=== PATIENT | female | born 1965 ===

== ENCOUNTER 2016-03-23 17:50 | Emergency (ER) | payer OTHER ==
[~2016-03-23] VITALS: Ht 154.9 cm; Wt 97.1 kg
[~2016-03-23 17:50] MED LIST: ALPRAZOLAM0.25 M1 PO; CITALOPRAM HYDR40 MG PO; HYDRODIURIL 112.5 M1 PO; LEVOTHYROXIN0.088 MG PO; LISINOPRIL5 M1 PO; NASONEX0.05 MG/Ac NASB; NICOTINE PATCH1 EAC3 TOP; PERCOCET 325 MG1 TA2 PO; PLAQUENIL200 M1 PO; PRINIVIL 5MG5 MG PO; SIMV10 PO; SIMVASTATIN20 M2 PO; SIMVASTATIN40 M1 PO; XANAX0.5 MG PO; ZYRTEC10 MG PO
--- NOTE | 2016-03-23 18:40 | ED GI/GU/ABDOMINAL COMPLAINT ---
See Addendum History of Present Illness General Chief Complaint: General Adult Stated Complaint: SWELLING IN LIMBS AND ABD. ?KIDNEY ISSUES PER PT Source: patient, old records Exam Limitations: no limitations Vital Signs & Intake/Output Vital Signs & Intake/Output Vital Signs Date Time Temp Pulse Resp B/P Pulse O2 O2 Flow FiO2 Ox Delivery Rate 03/23 2048 97.1 84 17 127/70 96 Room Air 03/23 1815 97.7 114 20 133/77 96 Room Air ED Intake and Output 03/24 0000 03/23 1200 Intake Total 120 Output Total 1 Balance 119 Intake, Oral 120 Output, Urine 1 Patient 214 lb Weight Allergies Coded Allergies: ibuprofen (Severe, HIVES 01/14/16) NSAIDS (Non-Steroidal Anti-Inflamma (HIVES 03/23/16) Reconcile Medications Citalopram Hydrobromide (Citalopram HBr) 40 MG TAB 1 TAB PO DAILY MENTAL HEALTH (Reported) Clonazepam 0.5 MG TABLET 1 TAB PO DAILY PTSD (Reported) Hydrochlorothiazide (Hydrodiuril 12.5 MG Tab) 12.5 MG HTAB 1 CAP PO DAILY BP (Reported) Hydroxychlorquine (Plaquenil) 200 MG TABLET 1 TAB PO D ARTHRITIS (Reported) Levothyroxine Sodium (Levothyroxine) 0.088 MG TAB 0.088 MG PO DAILY AC THYROID (Reported) Lisinopril 5 MG TABLET 1 TAB PO DAILY BP (Reported) Nitrofurantoin Monohyd/M-Cryst (Nitrofurantoin Beauregard-Mcr 100 MG) 100 MG CAPSULE 1 CAP PO BID UTI (Reported) Ondansetron HCl (Zofran) 4 MG TABLET 1 TAB PO Q6-8P PRN nausea Phenazopyridine HCl 100 MG TABLET 1 TAB PO TID UTI (Reported) Simvastatin (Simvastatin*) 20 MG TABLET 1 TAB PO DAILY CHOLESTEROL (Reported) Tylenol With Codeine (Tylenol With Codeine #3 Tablet) 300 MG-30 MG TABLET 1 TAB PO BIDP PRN pain Triage Note: PT TO ED C/O LEFT SIDED ABD X 2 WEEKS. C/O NAUSEA. DENIES V/D. DENIES S/S. STATES WAS CHECKED FOR A UTI, BUT IT WAS NEGATIVE. PT ALSO HAD INTERNAL U/S ON 03/17. PT CONCERNED ABOUT SWELLING ALL OVER WELL. PT STATES SHE HAD A FEVER AT HOME ON MONDAY, AFEBRILE NOW. Triage Nurses Notes Reviewed? yes LMP (ages 10-50): hysterectomy ? N Is pt currently ? No Onset: Abrupt Duration: constant, getting worse, waxing and waning, X 2.5 MONTHS Timing: recent history Quality/Severity: aching Severity Numbers: 6 Location: left flank Radiation: LLQ Activities at Onset: none Prior Abdominal Problems: similar symptoms No Modifying Factors: none Associated Symptoms: BURNING WITH URINATION HPI: 50-year-old female with history of autoimmune arthritis fibromyalgia and PTSD status post total hysterectomy 3 months ago presents to emergency room complaining of left flank pain that is radiating to the left lower quadrant for the past 2-1/2 months getting progressively worse described as throbbing and aching. For which she has not sought care or taken any medications for her symptoms. She denies any hematuria however reports of burning with urination. She denies any vomiting or diarrhea however reports intermittent nausea. The patient states she was seen by Dr. Interiano last week that was unremarkable and had a urinalysis which she states showed no signs of infection however was started on penicillin anyway. No sick contacts no vaginal bleeding or discharge. Her abdominal surgeries significant for appendectomy exploratory laparoscopic and hysterectomy. There are no modifying factors nothing makes the pain better or worse and stated it is constantly there. The patient has no history of kidney stones. The patient states that the extremity swelling has been constant and chronic over the past several years. She denies that it being worse than normal no recent immobility or recent travel. patient states she has had similar pain since 2010 worse over the past 2.5 months though (ODILIA DAVILA,BJ) Past History Travel History Traveled to [place] past 21 day No Medical History Any Pertinent Medical History? see below for history Neurological: NONE EENT: hearing loss Cardiovascular: hypertension Respiratory: bronchitis Gastrointestinal: NONE Hepatic: NONE Renal: NONE Musculoskeletal: fibromyalgia, DEGENERATIVE DISK DISEASE Psychiatric: anxiety, depression, PTSD Endocrine: HYPOTHYRODISM Blood Disorders: NONE Cancer(s): NONE PRODUCT ARCHITECT/Reproductive: endometriosis, fibroid History of MRSA: No History of VRE: No History of CDIFF: No Surgical History Surgical History: UTERINE ABLATION Psychosocial History Who do you live with Patient/Self Services at Home None What is your primary language Pashto Tobacco Use: Current Daily Use Daily Tobacco Use Amount/Type: => 5 Cigarettes daily ETOH Use: occasional use Illicit Drug Use: marijuana Family History Hx Contributory? No (BJ THURSTON) Review of Systems Review of Systems Constitutional: Reports: see HPI. All Other Systems: Reviewed and Negative Comments Review of systems: See HPI, All other systems negative. Constitutional, no chills no fever, no malaise HEENT: No visual changes no sore throat no congestion, no ear pain Cardiovascular: No chest pain , no palpitation Skin, no jaundice no rashes, no change in skin Respiratory: No dyspnea no cough no sputum GI: No nausea no vomiting, no diarrhea : No dysuria No hematuria, no frequency Muscle skeletal: No joint pain, no back pain, no neck pain, Neurologic: No numbness no headache Psych: No stress Heme/endocrine: No bruising no bleeding Immunology: No lymphadenopathy (BJ THURSTON) Physical Exam Physical Exam General Appearance: well developed/nourished, no apparent distress, alert Gastrointestinal: normal bowel sounds, soft Comments: Well-developed well-nourished person in no acute distress HEENT: Normal EENT exam; PERRL, EOMI, HEAD is atraumatic. moist mucous membranes. Neck: Supple, no lymphadenopathy, normal range of motion Back: Nontender, no CVA tenderness. Full range of motion Cardiovascular: Regular rate and rhythms no murmurs rubs Respiratory: No respiratory distress. Patient speaking in full complete sentences. Breath sounds clear to auscultation bilaterally: NO W/R/R Abdomen: Soft, mild left upper and left lower quadrant tenderness to palpatioN, surgical incision is well-healed there is no surrounding erythema induration or fluctuance nontender nondistended, no appreciable organomegaly. Normal bowel sounds. No rebound/guarding, No ascites. Extremity: No edema, full range of motion of extremities, normal and equal pulses bilaterally, 5 out of 5 strength noted to bilateral upper and lower extremities Neuro: Alert oriented x3, motor sensory normal, There were no obvious focal neurologic abnormalities. Skin: No appreciable rash on exposed skin, skin is warm and dry. Psych: Mood and affect is normal, memory and judgment is normal. Core Measures ACS in differential dx? No Severe Sepsis Present: No Septic Shock Present: No (BJ THURSTON) Progress Differential Diagnosis: bowel obstruction, colon cancer, hernia, inflamm bowel dis, kidney stone, PUD/GERD, perforated viscous, UTI/pyelo Plan of Care: Orders Procedure Date/time Status TSH REFLEX 03/23 1929 Complete LIPASE 03/23 1901 Complete AMYLASE 03/23 1901 Complete URINALYSIS 03/23 1837 Complete COMPREHENSIVE METABOLIC PANEL 03/23 1837 Complete CBC WITHOUT DIFFERENTIAL 03/23 1837 Complete Laboratory Tests 03/23/161931: Urine Color YEL, Urine Clarity CLEAR, Urine pH 6.0, Ur Specific Mohawk >= 1.030 , Urine Protein NEG, Urine Ketones NEG, Urine Nitrite NEG, Urine Bilirubin NEG, Urine Urobilinogen 0.2, Ur Leukocyte Esterase NEG, Ur Microscopic SEDIMENT EXAMINED, Urine RBC RARE, Urine WBC RARE, Ur Epithelial Cells MOD H, Urine Mucus FEW, Urine Hemoglobin TRACE-INTACT, Urine Glucose NEG 03/23/161929: Amylase < 30 L, Lipase 130 03/23/161929: Anion Gap 15, Estimated GFR > 60, BUN/Creatinine Ratio 20.0, Glucose 87, Calcium 9.6, Total Bilirubin 0.4, AST 23, ALT 37, Alkaline Phosphatase 62, Total Protein 7.8, Albumin 4.6, Globulin 3.2, Albumin/Globulin Ratio 1.4, TSH &T3 &Free T4 Intrp 2.340, CBC w Diff NO MAN DIFF REQ, RBC 4.69, MCV 87.5, MCH 28.7, RDW 14.0, MPV 7.6, Gran % 63.8, Lymphocytes % 25.2, Monocytes % 7.4, Eosinophils % 3.4, Basophils % 0.2, Absolute Granulocytes 6.6 H, Absolute Lymphocytes 2.6, Absolute Monocytes 0.8 H, Absolute Eosinophils 0.4, Absolute Basophils 0, PUBS MCHC 32.8 L 03/23/16 1840: TSH &T3 &Free T4 Intrp Cancelled Labs ordered old records reviewed patient Medicated with Zofran ODT Tylenol with codeine area CAT scan ordered case d/w and signed out to cameron murphy at [address] (ODILIA DAVILA,BJ) Diagnostic Imaging: Viewed by Me: CT Scan. Discussed w/RAD: CT Scan. Radiology Impression: PATIENT: ABDIRASHID GARCIA PRESENT AGE: 50 PATIENT ACCOUNT NO: [id number] : 66 LOCATION: [facility] ORDERING PHYSICIAN: BJ DAVILA SERVICE DATE: 03/23/16 EXAM TYPE: CAT - CT ABD & PELVIS W/O IV CONTRAS EXAMINATION: CT ABDOMEN AND PELVIS WITHOUT CONTRAST CLINICAL INFORMATION: Left flank pain. COMPARISON: None. TECHNIQUE: Multidetector volumetric imaging was performed from the superior aspect of the liver through the pubic symphysis. Sagittal and coronal reformatted images were obtained on the technologist's workstation. DLP: 877.61 mGy-cm. FINDINGS: The lung bases are clear. There are no pleural effusions. The unenhanced liver, gallbladder, spleen, adrenal glands, and pancreas appear normal. There is no hydronephrosis or perinephric stranding bilaterally. A small 6 mm faintly high density focus in the lower pole of the right kidney may be due to a nonobstructing calculus or small proteinaceous cyst, too small to definitively characterize. The abdominal aorta is normal in caliber. No bulky adenopathy is seen. The patient has had a prior hysterectomy. The ovaries are not visible, also potentially have been surgically resected. The bladder is decompressed. No free air or free fluid is seen. There is a small gastric hiatal hernia. There is no evidence of a bowel obstruction. No large bowel wall thickening is seen. A few colonic diverticula are noted without inflammatory change. Suspected sutural material in the region of the caput cecum may be due to a prior appendectomy. No acute osseous abnormality is seen. There is moderate spondylosis with disc space narrowing and vacuum phenomenon at L5-S1. IMPRESSION: No acute intra-abdominal or pelvic process to explain the patient's presenting symptoms. No hydronephrosis or obstructing ureteral calculus. Questionable small proteinaceous cyst or nonobstructing calculus in the lower pole of the right kidney. Moderate spondylosis at L5-S1. DICTATED BY: SERAFIN ROBERT MD DATE/ TIME DICTATED:03/23/161921 CHRONOMETER REPAIRER:CLIVE DATE/TIME TRANSCRIBED: 03/23/161921 CONFIDENTIAL, DO NOT COPY WITHOUT APPROPRIATE AUTHORIZATION. < Electronically signed in Other Vendor System> SIGNED BY: SERAFIN ROBERT MD 03/23/161931 Initial ED EKG: none Hand-Off Endorsed To: RAMÍREZ MURPHY PA-C Endorsed Time: 1999 Pending: CT, labs (BJ THURSTON) Departure Departure Disposition: HOME OR SELF CARE Condition: Stable Clinical Impression Primary Impression: Flank pain Referrals: LEIGH ANN PEREZ MD (PCP/Family) Additional Instructions: follow up with your primary care physician. tylenol with codeine for breakthrough pain, zofran if needed for nausea. return with any concerns Departure Forms: Customer Survey General Discharge Information Prescriptions: Current Visit Scripts Tylenol With Codeine (Tylenol With Codeine #3 Tablet) 1 TAB PO BIDP PRN pain #10 TAB Ondansetron HCl (Zofran) 1 TAB PO Q6-8P PRN nausea #10 TAB (BJ THURSTON) PA/GARAGE CONSTRUCTION EQUIPMENT MECHANIC Co-Sign Statement Statement: ED Attending supervision documentation- [] I saw and evaluated the patient. I have also reviewed all the pertinent lab results and diagnostic results. I agree with the findings and the plan of care as documented in the PA's/GARAGE CONSTRUCTION EQUIPMENT MECHANIC's documentation. [x] I have reviewed the ED Record and agree with the PA's/GARAGE CONSTRUCTION EQUIPMENT MECHANIC's documentation. [] Additions or exceptions (if any) to the PAs/GARAGE CONSTRUCTION EQUIPMENT MECHANIC's note and plan are summarized below: [] (DACIA ALVAREZ DO
[2016-03-23] MEDS ORDERED: CLONAZEPAM0.5 M2 PO (19:02)
[2016-03-23] MEDS ORDERED: NITROFURANTOIN100 M6 PO (19:03)
[2016-03-23] MEDS ORDERED: PHENAZOPYRIDIN100 M3 PO (19:03)
[2016-03-23] MEDS ORDERED: TYLENOL WITH C1 EACH PO (19:07)
[2016-03-23] MEDS ORDERED: ZOFRAN4 M2 PO (19:08)
--- NOTE | 2016-03-23 19:32 | CT SCAN REPORT ---
EXAMINATION: CT ABDOMEN AND PELVIS WITHOUT CONTRAST CLINICAL INFORMATION: Left flank pain. COMPARISON: None. TECHNIQUE: Multidetector volumetric imaging was performed from the superior aspect of the liver through the pubic symphysis. Sagittal and coronal reformatted images were obtained on the technologist's workstation. DLP: 877.61 mGy-cm. FINDINGS: The lung bases are clear. There are no pleural effusions. The unenhanced liver, gallbladder, spleen, adrenal glands, and pancreas appear normal. There is no hydronephrosis or perinephric stranding bilaterally. A small 6 mm faintly high density focus in the lower pole of the right kidney may be due to a nonobstructing calculus or small proteinaceous cyst, too small to definitively characterize. The abdominal aorta is normal in caliber. No bulky adenopathy is seen. The patient has had a prior hysterectomy. The ovaries are not visible, also potentially have been surgically resected. The bladder is decompressed. No free air or free fluid is seen. There is a small gastric hiatal hernia. There is no evidence of a bowel obstruction. No large bowel wall thickening is seen. A few colonic diverticula are noted without inflammatory change. Suspected sutural material in the region of the caput cecum may be due to a prior appendectomy. No acute osseous abnormality is seen. There is moderate spondylosis with disc space narrowing and vacuum phenomenon at L5-S1. IMPRESSION: No acute intra-abdominal or pelvic process to explain the patient's presenting symptoms. No hydronephrosis or obstructing ureteral calculus. Questionable small proteinaceous cyst or nonobstructing calculus in the lower pole of the right kidney. Moderate spondylosis at L5-S1.
[2016-03-23 19:44] LABS: ABSOLUTE BASOPHIL COUNT 0 /CUMM (0.0-0.2); ABSOLUTE EOSINOPHIL COUNT 0.4 /CUMM (0.0-0.7); ABSOLUTE GRANULOCYTE CT 6.6 /CUMM (1.4-6.5); ABSOLUTE LYMPH COUNT 2.6 /CUMM (1.2-3.4); ABSOLUTE MONOCYTE COUNT 0.8 /CUMM (0.10-0.60); BASOPHIL % 0.2 % (0.0-2.0); EOSINOPHIL % 3.4 % (0-5); GRANULOCYTE % 63.8 % (42.2-75.2); MEAN CORPUSCULAR HGB 28.7 PG (27.0-31.0); MEAN CORPUSCULAR HGB CONC 32.8 G/DL (33.0-37.0); MEAN CORPUSCULAR VOLUME 87.5 FL (81.0-99.0); MEAN PLATELET VOLUME 7.6 FL (7.4-10.4); PLATELET COUNT 346 /CUMM (130-400); RED BLOOD CELL CT 4.69 /CUMM (4.20-5.40); WHITE BLOOD CELL COUNT 10.4 /CUMM (4.8-10.8)
[2016-03-23 20:49] VITALS: BP 127/70
== END 2016-03-23 21:38 ==
LOC: ERH 17:50
PROVIDERS: Physician Assistant Medical
DX: R10.32 Left lower quadrant pain (principal)
CPT/HCPCS: 74176; 81001; 81025; J3101